=== PATIENT | male | born 1965 | race African-American/Black ===

== ENCOUNTER 2017-05-27 11:04 | Emergency (ER) | payer SELFPAY ==
[~2017-05-27] VITALS: Ht 172.7 cm; Wt 72.0 kg
[2017-05-27] MEDS ORDERED: LIDOCAINE HCL 1% 20ML VIAL (Pyxis) INJ INFIL ONE (13:00)
[2017-05-27] MEDS ORDERED: TETANUS, DIPHTHERIA, PERTUSSIS VAC/PF 0.5ML (>7YR OLD) IM ONE (13:30)
[2017-05-27 14:00] VITALS: BP 124/72
== END 2017-05-27 14:10 | disposition home or self-care (01) ==
LOC: ER 11:57
DX: K61.1 Rectal abscess (principal); Z23 Encounter for immunization; Z88.0 Allergy status to penicillin
CPT/HCPCS: 10060; 90471; 90715; 99283; J3490; Z7610

== ENCOUNTER 2017-05-28 11:40 | Emergency (ER) | payer MEDICAID ==
[~2017-05-28] VITALS: Ht 172.7 cm; Wt 73.0 kg
[2017-05-28] MEDS ORDERED: KETOROLAC 60MG/2ML VIAL IM ONE (12:15)
[2017-05-28 12:17] VITALS: BP 108/65
== END 2017-05-28 12:51 | disposition home or self-care (01) ==
LOC: ER 11:52
DX: M54.5 Low back pain (principal); M54.2 Cervicalgia; Z88.0 Allergy status to penicillin; V43.52XA Car driver injured in collision with other type car in traffic accident, initial encounter; Y93.89 Activity, other specified; Y92.488 Other paved roadways as the place of occurrence of the external cause
CPT/HCPCS: 96372; 99283; J1885

== ENCOUNTER 2017-06-03 10:08 | Emergency (ER) | payer MEDICAID ==
[~2017-06-03] VITALS: Ht 172.7 cm; Wt 72.0 kg
[2017-06-03 11:29] VITALS: BP 102/71
== END 2017-06-03 13:14 | disposition home or self-care (01) ==
LOC: ER 10:38
DX: Z48.00 Encounter for change or removal of nonsurgical wound dressing (principal); Z88.0 Allergy status to penicillin
CPT/HCPCS: 74176; 99284; Z7610

== ENCOUNTER 2019-08-01 13:00 | Emergency (ER) | payer MEDICAID ==
[~2019-08-01] VITALS: Ht 160 cm; Wt 78.0 kg
[2019-08-01 16:44] VITALS: BP 124/81
== END 2019-08-01 13:47 | disposition left against medical advice (07) ==
LOC: ER 13:00
DX: Z53.21 Procedure and treatment not carried out due to patient leaving prior to being seen by health care provider (principal)

== ENCOUNTER 2019-08-01 22:55 | Emergency (ER) | payer MEDICAID ==
[~2019-08-01] VITALS: Ht 172.7 cm; Wt 79.0 kg
[2019-08-02 00:11] VITALS: BP 124/74
== END 2019-08-02 00:11 | disposition home or self-care (01) ==
LOC: ER 22:55
DX: M62.830 Muscle spasm of back (principal); Z88.0 Allergy status to penicillin
CPT/HCPCS: 99282

== ENCOUNTER 2019-08-12 18:16 | Emergency (ER) | payer MEDICAID ==
[~2019-08-12] VITALS: Ht 172.7 cm; Wt 77.0 kg
[2019-08-12] MEDS ORDERED: IBUPROFEN 600MG TABLET PO ONE (22:45)
[2019-08-12 23:03] VITALS: BP 112/84
== END 2019-08-12 23:32 | disposition home or self-care (01) ==
LOC: ER 18:25
DX: L73.9 Follicular disorder, unspecified (principal); R03.0 Elevated blood-pressure reading, without diagnosis of hypertension
CPT/HCPCS: 99283

== ENCOUNTER 2019-09-05 15:25 | Emergency (ER) | payer MEDICAID ==
[~2019-09-05] VITALS: Ht 172.7 cm; Wt 82.0 kg
[2019-09-05] MEDS ORDERED: ACETAMINOPHEN WITH CODEINE 300/30MG TABLET PO ONE (16:15)
[2019-09-05] MEDS ORDERED: MORPHINE SULFATE 4 MG/ML CPJ (NOT FOR IM USE) IV STA (16:33)
[2019-09-05 18:00] VITALS: BP 144/92
== END 2019-09-05 18:15 | disposition home or self-care (01) ==
LOC: ER 15:25
DX: T59.893A Toxic effect of other specified gases, fumes and vapors, assault, initial encounter (principal); H10.213 Acute toxic conjunctivitis, bilateral; R20.8 Other disturbances of skin sensation; Y92.89 Other specified places as the place of occurrence of the external cause
CPT/HCPCS: 96374; 99283; J2270

== ENCOUNTER 2020-10-26 10:03 | Inpatient (IN) | payer OTHER ==
[~2020-10-26] VITALS: Ht 177.8 cm; Wt 70.0 kg
[~2020-10-26 10:03] MED LIST: DEXA6TAB MT; LEVO500T89 MT
[2020-10-26] MEDS ORDERED: MIDAZOLAM HCL 2 MG/2 ML VIAL IV ONE (10:15)
[2020-10-26 10:23] LABS: HEMATOCRIT. 39.2 % (42.0-52.0); MEAN CORPUSCULAR HEMOGLOBIN 30.9 pg (28.0-32.0); MEAN CORPUSCULAR VOLUME 93.1 fL (80.0-94.0); MEAN PLATELET VOLUME 7.6 fl (7.4-10.4); PLATELET 374 x1000/uL (130-400); RED BLOOD CELL COUNT 4.21 mill/uL (4.7-6.1); RED CELL DISTRIBUTION WIDTH 13.2 % (11.6-14.6)
[2020-10-26 10:28] LABS: CHLORIDE 99 mEq/L (98-107)
[2020-10-26] MEDS ORDERED: CLONIDINE 0.2MG TABLET PO ONE (10:30)
[2020-10-26 10:57] LABS: BG BASE EXCESS -3.3 mmol/L (-2.0-2.0); BG CARBOXYHEMOGLOBIN 0.3 % (0.5-1.5); BG DEOXYHEMOGLOBIN 2.8 % (0.0-5.0); BG FRACTION INSPIRED OXYGEN 100; BG HCO3 ACT 20.7 mmol/L (22.0-26.0); BG METHEMOGLOBIN 0.1 % (0.0-1.5); BG OXYGEN SATURATION 97.2 % (92.0-98.5); BG OXYHEMOGLOBIN 96.8 % (94.0-97.0); BG PCO2 34.1 mmHg (35.0-45.0); BG PH 7.402 (7.350-7.450); BG PO2 103.1 mmHg (75.0-100.0); BG SAMPLE SITE RIGHT BRACHIAL; BG TOTAL HEMOGLOBIN 12.9 g/dL (12.0-18.0); BG TOTAL RESPIRATORY RATE 46 b/min; BG VENT MODE MASK - BIPAP
[2020-10-26 11:35] LABS: PLATELET ESTIMATE NORMAL
[2020-10-26] MEDS ORDERED: ONDANSETRON HCL 4MG/2ML INJ IV PRN (13:45)
[2020-10-26] MEDS ORDERED: CLONIDINE 0.1MG TABLET PO PRN (13:45)
[2020-10-26] MEDS ORDERED: DIPHENHYDRAMINE 50MG/ML VIAL IV PRN (13:45)
[2020-10-26 14:00] VITALS: BP 105/55
[2020-10-26] MEDS ORDERED: LEVOFLOXACIN 500MG PREMIX 100 ML IV SCH (14:00)
[2020-10-26] MEDS: DEXAMETHASONE 10 MG/ML VIAL IV SCH (15:03)
[2020-10-26] MEDS: ACETAMINOPHEN 325MG TABLET PO PRN (15:03)
[2020-10-26] MEDS: ENOXAPARIN 40MG/0.4ML SYR SUBCUT SCH (15:03)
[2020-10-26 15:31] VITALS: BP 105/55
[2020-10-26 16:00] VITALS: BP 94/56
[2020-10-26] MEDS: HYDROCODONE/ACETAMINOPHEN 5/325MG TABLET PO PRN (17:03)
[2020-10-26] MEDS: DOCUSATE SODIUM 100MG CAPSULE PO SCH (17:03)
[2020-10-26] MEDS: LEVOFLOXACIN 500MG PREMIX 100 ML IV SCH (17:26)
[2020-10-26 20:41] VITALS: BP 102/66
[2020-10-26] MEDS: PHENYLEPH/PRAMOXIN/GLYCR/PET RECTAL CREAM 26GM PR SCH (22:29)
[2020-10-27 00:13] VITALS: BP 110/69
[2020-10-27] MEDS: PHENYLEPH/PRAMOXIN/GLYCR/PET RECTAL CREAM 26GM PR SCH ×5 (00:58→23:09)
[2020-10-27 04:00] VITALS: BP 113/71
[2020-10-27 06:47] LABS: HEMATOCRIT. 35.7 % (42.0-52.0); MEAN CORPUSCULAR HEMOGLOBIN 30.5 pg (28.0-32.0); MEAN CORPUSCULAR VOLUME 90.9 fL (80.0-94.0); MEAN PLATELET VOLUME 7.8 fl (7.4-10.4); PLATELET 220 x1000/uL (130-400); RED BLOOD CELL COUNT 3.93 mill/uL (4.7-6.1); RED CELL DISTRIBUTION WIDTH 12.6 % (11.6-14.6)
[2020-10-27 06:49] LABS: CHLORIDE 101 mEq/L (98-107)
[2020-10-27 07:04] LABS: LDL CHOLESTEROL 68 mg/dL (5-100)
[2020-10-27 07:07] LABS: HDL CHOLESTEROL 50 mg/dL (40-59)
[2020-10-27] MEDS ORDERED: DEXTROSE 50% WATER 50ML SYRINGE IV PRN (07:30)
[2020-10-27] MEDS: BLOOD SUGAR DIAGNOSTIC STRIP TEST SCH ×4 (07:40→20:17)
[2020-10-27 08:00] VITALS: BP 107/64
[2020-10-27] MEDS: INSULIN LISPRO 100 UNITS/ML SUBCUT SCH ×2 (08:09→12:09)
[2020-10-27] MEDS: DOCUSATE SODIUM 100MG CAPSULE PO SCH ×2 (08:09→16:36)
[2020-10-27] MEDS: DEXAMETHASONE 10 MG/ML VIAL IV SCH (08:09)
[2020-10-27 12:00] VITALS: BP 98/60
[2020-10-27] MEDS: ENOXAPARIN 40MG/0.4ML SYR SUBCUT SCH (13:32)
[2020-10-27 16:00] VITALS: BP 102/67
[2020-10-27] MEDS: LEVOFLOXACIN 500MG PREMIX 100 ML IV SCH (16:36)
[2020-10-27 16:57] LABS: PLATELET ESTIMATE NORMAL
[2020-10-27 20:00] VITALS: BP 107/70
[2020-10-27] MEDS: ACETAMINOPHEN 325MG TABLET PO PRN (23:09)
[2020-10-27] MEDS ORDERED: IVERMECTIN 3 MG TABLET PO NR (23:30)
[2020-10-28] VITALS: BP 100/64
[2020-10-28 04:00] VITALS: BP 103/75
[2020-10-28 05:36] LABS: HEMATOCRIT. 34.2 % (42.0-52.0); HEMOGLOBIN. 11.6 g/dL (14.0-18.0); MEAN CORPUSCULAR HEMOGLOBIN 30.5 pg (28.0-32.0); MEAN CORPUSCULAR VOLUME 90.1 fL (80.0-94.0); MEAN PLATELET VOLUME 8.5 fl (7.4-10.4); PLATELET 215 x1000/uL (130-400); RED CELL DISTRIBUTION WIDTH 12.8 % (11.6-14.6)
[2020-10-28 05:41] LABS: CHLORIDE 100 mEq/L (98-107)
[2020-10-28] MEDS: BLOOD SUGAR DIAGNOSTIC STRIP TEST SCH ×4 (07:16→21:12)
[2020-10-28] MEDS: PHENYLEPH/PRAMOXIN/GLYCR/PET RECTAL CREAM 26GM PR SCH ×3 (07:16→17:28)
[2020-10-28 08:00] VITALS: BP 112/68
[2020-10-28] MEDS: DOCUSATE SODIUM 100MG CAPSULE PO SCH ×2 (09:22→16:06)
[2020-10-28] MEDS: DEXAMETHASONE 10 MG/ML VIAL IV SCH (09:22)
[2020-10-28 12:00] VITALS: BP 112/70
[2020-10-28 13:54] LABS: PLATELET ESTIMATE NORMAL
[2020-10-28] MEDS: ENOXAPARIN 40MG/0.4ML SYR SUBCUT SCH (13:59)
[2020-10-28 16:00] VITALS: BP 105/69
[2020-10-28] MEDS: LEVOFLOXACIN 500MG TABLET PO SCH (16:06)
[2020-10-28 20:00] VITALS: BP 111/74
[2020-10-28] MEDS: HYDROCODONE/ACETAMINOPHEN 5/325MG TABLET PO PRN (22:38)
[2020-10-29] VITALS: BP 102/62
[2020-10-29] MEDS: PHENYLEPH/PRAMOXIN/GLYCR/PET RECTAL CREAM 26GM PR SCH ×4 (00:45→17:43)
[2020-10-29 04:00] VITALS: BP 107/65
[2020-10-29] MEDS: HYDROCODONE/ACETAMINOPHEN 5/325MG TABLET PO PRN ×2 (06:27→20:13)
[2020-10-29] MEDS: BLOOD SUGAR DIAGNOSTIC STRIP TEST SCH ×4 (07:41→21:00)
[2020-10-29] MEDS: INSULIN LISPRO 100 UNITS/ML SUBCUT SCH ×4 (07:41→21:00)
[2020-10-29 08:00] VITALS: BP 113/62
[2020-10-29] MEDS: DOCUSATE SODIUM 100MG CAPSULE PO SCH ×2 (08:32→16:31)
[2020-10-29] MEDS: ACETAMINOPHEN 325MG TABLET PO PRN (08:32)
[2020-10-29] MEDS: DEXAMETHASONE 10 MG/ML VIAL IV SCH (08:32)
[2020-10-29 12:00] VITALS: BP 104/64
[2020-10-29] MEDS: ENOXAPARIN 40MG/0.4ML SYR SUBCUT SCH (13:27)
[2020-10-29 16:00] VITALS: BP 115/73
[2020-10-29] MEDS: LEVOFLOXACIN 500MG TABLET PO SCH (16:31)
[2020-10-29 20:00] VITALS: BP 108/66
[2020-10-29] MEDS ORDERED: IVERMECTIN 3 MG TABLET PO NR (21:00)
[2020-10-30] VITALS: BP 110/72
[2020-10-30] MEDS: ZOLPIDEM TARTRATE 5MG TABLET PO PRN (01:24)
[2020-10-30 04:10] VITALS: BP 111/75
[2020-10-30] MEDS: PHENYLEPH/PRAMOXIN/GLYCR/PET RECTAL CREAM 26GM PR SCH ×5 (06:20→23:22)
[2020-10-30] MEDS: BLOOD SUGAR DIAGNOSTIC STRIP TEST SCH ×4 (07:40→20:42)
[2020-10-30 08:00] VITALS: BP 113/70
[2020-10-30] MEDS: INSULIN LISPRO 100 UNITS/ML SUBCUT SCH ×4 (08:10→20:42)
[2020-10-30] MEDS: DEXAMETHASONE 10 MG/ML VIAL IV SCH (09:45)
[2020-10-30] MEDS: DOCUSATE SODIUM 100MG CAPSULE PO SCH ×2 (09:45→17:50)
[2020-10-30 12:00] VITALS: BP 107/66
[2020-10-30] MEDS ORDERED: SODIUM CHLORIDE 0.9% 500 ML IV ONE (12:30)
[2020-10-30] MEDS: ENOXAPARIN 40MG/0.4ML SYR SUBCUT SCH (14:09)
[2020-10-30 16:00] VITALS: BP 108/71
[2020-10-30] MEDS: LEVOFLOXACIN 500MG TABLET PO SCH (17:50)
[2020-10-30 19:41] VITALS: BP 114/71
[2020-10-30] MEDS: COLCHICINE 0.6MG TABLET PO SCH (20:36)
[2020-10-31] VITALS (48 sets, daily range): BP systolic 92–140; BP diastolic 59–84
[2020-10-31] MEDS: ZOLPIDEM TARTRATE 5MG TABLET PO PRN ×2 (01:54→23:39)
[2020-10-31 05:59] LABS: BG BASE EXCESS 1.1 mmol/L (-2.0-2.0); BG CARBOXYHEMOGLOBIN 0.1 % (0.5-1.5); BG DEOXYHEMOGLOBIN 47.4 % (0.0-5.0); BG FRACTION INSPIRED OXYGEN 100; BG HCO3 ACT 25.6 mmol/L (22.0-26.0); BG METHEMOGLOBIN 0.1 % (0.0-1.5); BG OXYGEN SATURATION 52.5 % (92.0-98.5); BG OXYHEMOGLOBIN 52.4 % (94.0-97.0); BG PCO2 40.3 mmHg (35.0-45.0); BG PH 7.421 (7.350-7.450); BG PO2 < 30.3 mmHg (75.0-100.0); BG TOTAL HEMOGLOBIN 13.5 g/dL (12.0-18.0); BG VENT MODE MASK - BIPAP
[2020-10-31] MEDS: PHENYLEPH/PRAMOXIN/GLYCR/PET RECTAL CREAM 26GM PR SCH ×4 (06:00→23:25)
[2020-10-31] MEDS: BLOOD SUGAR DIAGNOSTIC STRIP TEST SCH ×4 (06:02→20:32)
[2020-10-31] MEDS: INSULIN LISPRO 100 UNITS/ML SUBCUT SCH ×3 (07:00→20:32)
[2020-10-31] MEDS: HYDROCODONE/ACETAMINOPHEN 5/325MG TABLET PO PRN (08:06)
[2020-10-31] MEDS: COLCHICINE 0.6MG TABLET PO SCH ×2 (08:06→20:32)
[2020-10-31] MEDS: DOCUSATE SODIUM 100MG CAPSULE PO SCH ×2 (08:06→16:14)
[2020-10-31] MEDS: DEXAMETHASONE 10 MG/ML VIAL IV SCH (08:06)
[2020-10-31 08:39] LABS: BG BASE EXCESS 3.8 mmol/L (-2.0-2.0); BG CARBOXYHEMOGLOBIN 0.2 % (0.5-1.5); BG DEOXYHEMOGLOBIN 6.8 % (0.0-5.0); BG FRACTION INSPIRED OXYGEN 100; BG HCO3 ACT 28.5 mmol/L (22.0-26.0); BG METHEMOGLOBIN 0.1 % (0.0-1.5); BG OXYGEN SATURATION 93.2 % (92.0-98.5); BG OXYHEMOGLOBIN 92.9 % (94.0-97.0); BG PCO2 43.4 mmHg (35.0-45.0); BG PH 7.435 (7.350-7.450); BG PO2 68.6 mmHg (75.0-100.0); BG SAMPLE SITE RIGHT RADIAL; BG TOTAL RESPIRATORY RATE 39 b/min; BG VENT MODE MASK - BIPAP
[2020-10-31 08:48] LABS: HEMATOCRIT. 36.1 % (42.0-52.0); HEMOGLOBIN. 12.3 g/dL (14.0-18.0); MEAN CORPUSCULAR HEMOGLOBIN 30.1 pg (28.0-32.0); MEAN CORPUSCULAR VOLUME 88.3 fL (80.0-94.0); MEAN PLATELET VOLUME 8.4 fl (7.4-10.4); PLATELET 189 x1000/uL (130-400); RED BLOOD CELL COUNT 4.09 mill/uL (4.7-6.1); RED CELL DISTRIBUTION WIDTH 13.1 % (11.6-14.6)
[2020-10-31 10:10] LABS: CHLORIDE 95 mEq/L (98-107)
[2020-10-31 10:27] LABS: PLATELET ESTIMATE NORMAL
[2020-10-31] MEDS: LORAZEPAM 2MG/ML CPJ IV PRN (11:35)
[2020-10-31] MEDS ORDERED: SODIUM CHLORIDE 0.9% 500 ML IV ONE (12:30)
[2020-10-31] MEDS: ENOXAPARIN 40MG/0.4ML SYR SUBCUT SCH (14:36)
[2020-10-31] MEDS: ACETAMINOPHEN 325MG TABLET PO PRN (20:32)
[2020-10-31] MEDS ORDERED: LEVOFLOXACIN 500MG TABLET PO SCH (21:00)
[2020-11-01] VITALS (75 sets, daily range): BP systolic 84–143; BP diastolic 14–110
[2020-11-01] MEDS: LORAZEPAM 2MG/ML CPJ IV PRN ×2 (03:02→07:48)
[2020-11-01 04:59] LABS: CHLORIDE 97 mEq/L (98-107); HEMATOCRIT. 37.9 % (42.0-52.0); HEMOGLOBIN. 12.8 g/dL (14.0-18.0); MEAN CORPUSCULAR VOLUME 88.6 fL (80.0-94.0); MEAN PLATELET VOLUME 8.2 fl (7.4-10.4); PLATELET 213 x1000/uL (130-400); RED BLOOD CELL COUNT 4.28 mill/uL (4.7-6.1); RED CELL DISTRIBUTION WIDTH 12.9 % (11.6-14.6)
[2020-11-01] MEDS: PHENYLEPH/PRAMOXIN/GLYCR/PET RECTAL CREAM 26GM PR SCH ×4 (05:09→23:07)
[2020-11-01] MEDS: INSULIN LISPRO 100 UNITS/ML SUBCUT SCH ×4 (06:55→21:00)
[2020-11-01] MEDS: BLOOD SUGAR DIAGNOSTIC STRIP TEST SCH ×4 (06:55→21:58)
[2020-11-01 07:47] LABS: BG BASE EXCESS 4.4 mmol/L (-2.0-2.0); BG CARBOXYHEMOGLOBIN 0.4 % (0.5-1.5); BG DEOXYHEMOGLOBIN 6.6 % (0.0-5.0); BG FRACTION INSPIRED OXYGEN 100; BG HCO3 ACT 28.3 mmol/L (22.0-26.0); BG METHEMOGLOBIN 0.2 % (0.0-1.5); BG OXYGEN SATURATION 93.4 % (92.0-98.5); BG OXYHEMOGLOBIN 92.8 % (94.0-97.0); BG PCO2 39.4 mmHg (35.0-45.0); BG PH 7.474 (7.350-7.450); BG PO2 64.7 mmHg (75.0-100.0); BG SAMPLE SITE RIGHT RADIAL; BG TOTAL RESPIRATORY RATE 30 b/min; BG VENT MODE MASK - BIPAP
[2020-11-01] MEDS: DOCUSATE SODIUM 100MG CAPSULE PO SCH ×2 (09:00→17:00)
[2020-11-01 10:21] LABS: PLATELET ESTIMATE NORMAL
[2020-11-01] MEDS ORDERED: NOREPINEPHRINE 32 MG in DEXT 5% WATER 218 ML IV PRN (11:00)
[2020-11-01] MEDS ORDERED: PROPOFOL 10MG/ML 100ML 100 ML IV PRN (11:00)
[2020-11-01] MEDS ORDERED: DILTIAZEM HCL 5MG/ML 5ML VIAL IV NR (11:00)
[2020-11-01 11:44] LABS: BG BASE EXCESS 1.5 mmol/L (-2.0-2.0); BG CARBOXYHEMOGLOBIN 0.2 % (0.5-1.5); BG DEOXYHEMOGLOBIN 25.2 % (0.0-5.0); BG HCO3 ACT 26.8 mmol/L (22.0-26.0); BG METHEMOGLOBIN 0.2 % (0.0-1.5); BG OXYGEN SATURATION 74.7 % (92.0-98.5); BG OXYHEMOGLOBIN 74.4 % (94.0-97.0); BG PCO2 45.1 mmHg (35.0-45.0); BG PH 7.392 (7.350-7.450); BG PO2 42.2 mmHg (75.0-100.0); BG TOTAL HEMOGLOBIN 13.4 g/dL (12.0-18.0); BG VENT MODE VENT- PRVC
[2020-11-01] MEDS ORDERED: CEFEPIME 2,000 MG in DEXT 5% WATER 100 ML IV SCH (11:45)
[2020-11-01] MEDS ORDERED: SODIUM CHLORIDE 0.9% 500 ML IV ONE (11:45)
[2020-11-01] MEDS: DEXAMETHASONE 10 MG/ML VIAL IV SCH (12:35)
[2020-11-01] MEDS: COLCHICINE 0.6MG TABLET PO SCH ×2 (12:35→23:07)
[2020-11-01] MEDS: MIDAZOLAM HCL 100 MG in SODIUM CHLORIDE 0.9% 80 ML IV PRN (12:42)
[2020-11-01] MEDS: PROPOFOL 10MG/ML 100ML 100 ML IV PRN ×2 (12:44→13:54)
[2020-11-01] MEDS: FENTANYL CITRATE/PF 2,500 MCG in SODIUM CHLORIDE 0.9% 200 ML IV PRN (12:45)
[2020-11-01] MEDS: PHENYLEPHRINE 100 MG in DEXT 5% WATER 240 ML IV PRN ×2 (13:40→19:12)
[2020-11-01] MEDS: LEVOFLOXACIN 500MG PREMIX 100 ML IV SCH (13:54)
[2020-11-01] MEDS ORDERED: VANCOMYCIN 1 G PREMIX 200 ML IV NR (14:00)
[2020-11-01] MEDS: ENOXAPARIN 40MG/0.4ML SYR SUBCUT SCH (15:10)
[2020-11-01] MEDS: METRONIDAZOLE 500 MG PREMIX 100 ML IV SCH ×2 (15:10→23:07)
[2020-11-01] MEDS ORDERED: DIGOXIN 500MCG/2ML AMP IV NR (15:30)
[2020-11-01] MEDS ORDERED: DIGOXIN 500MCG/2ML AMP IV PRN (17:30)
[2020-11-02] VITALS (96 sets, daily range): BP systolic 85–113; BP diastolic 46–77
[2020-11-02] MEDS: VANCOMYCIN 1 G PREMIX 200 ML IV SCH ×3 (02:18→17:43)
[2020-11-02] MEDS: PROPOFOL 10MG/ML 100ML 100 ML IV PRN ×3 (02:26→19:46)
[2020-11-02] MEDS: MIDAZOLAM HCL 100 MG in SODIUM CHLORIDE 0.9% 80 ML IV PRN (02:27)
[2020-11-02] MEDS: PHENYLEPHRINE 100 MG in DEXT 5% WATER 240 ML IV PRN ×2 (03:57→17:43)
[2020-11-02] MEDS: METRONIDAZOLE 500 MG PREMIX 100 ML IV SCH ×3 (05:40→22:36)
[2020-11-02 05:44] LABS: HEMATOCRIT. 36.5 % (42.0-52.0); HEMOGLOBIN. 11.9 g/dL (14.0-18.0); MEAN CORPUSCULAR HEMOGLOBIN 29.7 pg (28.0-32.0); MEAN CORPUSCULAR VOLUME 90.6 fL (80.0-94.0); MEAN PLATELET VOLUME 8.8 fl (7.4-10.4); PLATELET 224 x1000/uL (130-400); RED BLOOD CELL COUNT 4.03 mill/uL (4.7-6.1); RED CELL DISTRIBUTION WIDTH 13.2 % (11.6-14.6)
[2020-11-02 05:46] LABS: CHLORIDE 99 mEq/L (98-107)
[2020-11-02] MEDS: INSULIN LISPRO 100 UNITS/ML SUBCUT SCH ×4 (05:59→20:35)
[2020-11-02] MEDS: BLOOD SUGAR DIAGNOSTIC STRIP TEST SCH ×4 (05:59→20:15)
[2020-11-02] MEDS: PHENYLEPH/PRAMOXIN/GLYCR/PET RECTAL CREAM 26GM PR SCH ×4 (06:00→23:26)
[2020-11-02 07:25] LABS: PLATELET ESTIMATE NORMAL
[2020-11-02 08:49] LABS: BG BASE EXCESS -1.3 mmol/L (-2.0-2.0); BG CARBOXYHEMOGLOBIN 0.3 % (0.5-1.5); BG DEOXYHEMOGLOBIN 10.3 % (0.0-5.0); BG FRACTION INSPIRED OXYGEN 100; BG HCO3 ACT 24.3 mmol/L (22.0-26.0); BG METHEMOGLOBIN 0.2 % (0.0-1.5); BG OXYGEN SATURATION 89.6 % (92.0-98.5); BG OXYHEMOGLOBIN 89.2 % (94.0-97.0); BG PCO2 44.3 mmHg (35.0-45.0); BG PH 7.357 (7.350-7.450); BG PO2 60.7 mmHg (75.0-100.0); BG SAMPLE SITE RIGHT RADIAL; BG TOTAL HEMOGLOBIN 12.6 g/dL (12.0-18.0); BG VENT MODE VENT- PRVC
[2020-11-02] MEDS: DOCUSATE SODIUM 100MG CAPSULE PO SCH ×2 (09:00→17:00)
[2020-11-02] MEDS: DEXAMETHASONE 10 MG/ML VIAL IV SCH (09:16)
[2020-11-02] MEDS: COLCHICINE 0.6MG TABLET PO SCH ×2 (09:17→20:32)
[2020-11-02] MEDS: FENTANYL CITRATE/PF 2,500 MCG in SODIUM CHLORIDE 0.9% 200 ML IV PRN (09:28)
[2020-11-02] MEDS: LEVOFLOXACIN 500MG PREMIX 100 ML IV SCH (13:40)
[2020-11-02] MEDS: ENOXAPARIN 40MG/0.4ML SYR SUBCUT SCH (13:41)
[2020-11-02] MEDS: PANTOPRAZOLE SODIUM 40 MG/VIAL IV SCH (19:38)
[2020-11-02 21:55] LABS: PHOSPHORUS 4.5 mg/dL (2.5-4.9)
[2020-11-03] VITALS (69 sets, daily range): BP systolic 16–279; BP diastolic 11–129
[2020-11-03] MEDS: PHENYLEPHRINE 100 MG in DEXT 5% WATER 240 ML IV PRN (04:03)
[2020-11-03] MEDS: PHENYLEPH/PRAMOXIN/GLYCR/PET RECTAL CREAM 26GM PR SCH (05:06)
[2020-11-03] MEDS: PROPOFOL 10MG/ML 100ML 100 ML IV PRN (05:10)
[2020-11-03] MEDS: METRONIDAZOLE 500 MG PREMIX 100 ML IV SCH (05:40)
[2020-11-03] MEDS: BLOOD SUGAR DIAGNOSTIC STRIP TEST SCH ×2 (05:41→12:16)
[2020-11-03 05:45] LABS: HEMATOCRIT. 37.1 % (42.0-52.0); MEAN CORPUSCULAR HEMOGLOBIN 29.5 pg (28.0-32.0); MEAN CORPUSCULAR VOLUME 91.2 fL (80.0-94.0); MEAN PLATELET VOLUME 8.8 fl (7.4-10.4); PLATELET 116 x1000/uL (130-400); RED BLOOD CELL COUNT 4.07 mill/uL (4.7-6.1); RED CELL DISTRIBUTION WIDTH 13.1 % (11.6-14.6)
[2020-11-03] MEDS: INSULIN LISPRO 100 UNITS/ML SUBCUT SCH ×2 (06:16→12:27)
[2020-11-03] MEDS: FENTANYL CITRATE/PF 2,500 MCG in SODIUM CHLORIDE 0.9% 200 ML IV PRN (07:06)
[2020-11-03 07:52] LABS: NUCLEATED RED BLOOD CELLS 1 /100 WBC
[2020-11-03 07:53] LABS: PLATELET ESTIMATE DECREASED
[2020-11-03] MEDS: PANTOPRAZOLE SODIUM 40 MG/VIAL IV SCH (08:36)
[2020-11-03] MEDS: DEXAMETHASONE 10 MG/ML VIAL IV SCH (08:36)
[2020-11-03] MEDS: COLCHICINE 0.6MG TABLET PO SCH (08:36)
[2020-11-03] MEDS ORDERED: DOCUSATE SODIUM SUGAR FREE 100MG/10ML UDC NG SCH (09:00)
[2020-11-03] MEDS ORDERED: VANCOMYCIN 1 G PREMIX 200 ML IV SCH (09:00)
[2020-11-03 10:17] LABS: BG BASE EXCESS -11.5 mmol/L (-2.0-2.0); BG CARBOXYHEMOGLOBIN 0.1 % (0.5-1.5); BG DEOXYHEMOGLOBIN 11.8 % (0.0-5.0); BG FRACTION INSPIRED OXYGEN 100; BG METHEMOGLOBIN 0.3 % (0.0-1.5); BG OXYGEN SATURATION 88.2 % (92.0-98.5); BG OXYHEMOGLOBIN 87.8 % (94.0-97.0); BG PCO2 56.3 mmHg (35.0-45.0); BG PH 7.123 (7.350-7.450); BG PO2 71.4 mmHg (75.0-100.0); BG SAMPLE SITE RIGHT FEMORAL; BG TOTAL HEMOGLOBIN 13.1 g/dL (12.0-18.0); BG VENT MODE VENT- PRVC
[2020-11-03] MEDS ORDERED: SODIUM BICARBONATE 8.4% 1 MEQ/ML 50ML SYR IV SCH (10:30)
[2020-11-03] MEDS ORDERED: VASOPRESSIN 20 UNIT in SODIUM CHLORIDE 0.9% 99 ML IV PRN (10:30)
[2020-11-03] MEDS ORDERED: SODIUM POLYSTYRENE SULFONATE 15 G/60 ML BOT PO SCH (11:30)
[2020-11-03] MEDS ORDERED: SODIUM CHLORIDE 0.9% 1,000 ML IV SCH (11:30)
[2020-11-03] MEDS ORDERED: SODIUM BICARBONATE 100 MEQ in SODIUM CHLORIDE 0.45% 900 ML IV SCH (12:00)
[2020-11-03 12:05] LABS: CREATINE KINASE MB FRACTION 30.1 ng/mL (0.5-3.6)
[2020-11-04] MEDS ORDERED: VANCOMYCIN 1 G PREMIX 200 ML IV PRN (06:00)
== END 2020-11-03 12:55 | DRG 720 ==
LOC: ER 10:08 → 7WST 11:45 → ENRESERV 12:57 → MICUSO 10-31 06:30
PROVIDERS: ADMIT Internal Medicine; ATTEND Internal Medicine
PROC: 5A09357 Assistance with Respiratory Ventilation, Less than 24 Consecutive Hours, Continuous Positive Airway Pressure (ICD-10-PCS; 2020-10-26)
PROC: 5A09357 Assistance with Respiratory Ventilation, Less than 24 Consecutive Hours, Continuous Positive Airway Pressure (ICD-10-PCS; 2020-10-27)
PROC: 5A09457 Assistance with Respiratory Ventilation, 24-96 Consecutive Hours, Continuous Positive Airway Pressure (ICD-10-PCS; 2020-10-28)
PROC: 5A09357 Assistance with Respiratory Ventilation, Less than 24 Consecutive Hours, Continuous Positive Airway Pressure (ICD-10-PCS; 2020-10-31)
PROC: 0BH17EZ Insertion of Endotracheal Airway into Trachea, Via Natural or Artificial Opening (ICD-10-PCS; principal; 2020-11-01)
PROC: 05HY33Z Insertion of Infusion Device into Upper Vein, Percutaneous Approach (ICD-10-PCS; 2020-11-01)
PROC: B54MZZA Ultrasonography of Right Upper Extremity Veins, Guidance (ICD-10-PCS; 2020-11-01)
PROC: 5A1945Z Respiratory Ventilation, 24-96 Consecutive Hours (ICD-10-PCS; 2020-11-01)
PROC: 04HY32Z Insertion of Monitoring Device into Lower Artery, Percutaneous Approach (ICD-10-PCS; 2020-11-03)
PROC: 4A133B1 Monitoring of Arterial Pressure, Peripheral, Percutaneous Approach (ICD-10-PCS; 2020-11-03)
PROC: 4A133J1 Monitoring of Arterial Pulse, Peripheral, Percutaneous Approach (ICD-10-PCS; 2020-11-03)
DX: A41.89 Other specified sepsis (principal); U07.1 COVID-19; I21.4 Non-ST elevation (NSTEMI) myocardial infarction; J96.01 Acute respiratory failure with hypoxia; J12.82 Pneumonia due to coronavirus disease 2019; E44.0 Moderate protein-calorie malnutrition; R65.21 Severe sepsis with septic shock; Z66 Do not resuscitate; K72.00 Acute and subacute hepatic failure without coma; I47.1 Supraventricular tachycardia; E86.1 Hypovolemia; E87.1 Hypo-osmolality and hyponatremia; E87.5 Hyperkalemia; E87.4 Mixed disorder of acid-base balance; N17.0 Acute kidney failure with tubular necrosis; R73.9 Hyperglycemia, unspecified; Z88.0 Allergy status to penicillin; Z79.899 Other long term (current) drug therapy
CPT/HCPCS: 36415; 36600; 71045; 76770; 76937; 80048; 80053; 80061; 80202; 82375; 82550; 82553; 82728; 82805; 82962; 83036; 83605; 83615; 83735; 83880; 84100; 84145; 84443; 84478; 84484; 85025; 85379; 86141; 87070; 93005; 93970; 94002; 94003; 94640; 94660; 99291; A6261; C1725; C1893; C9113; J1100; J1160; J1650; J1815; J1956; J2060; J2250; J2370; J2405; J2704; J3010; J3370; J3490; J7030; J7040; J7050; J7060; U0003; A4315